=== PATIENT | female | born 1955 | race Caucasian/White ===

== ENCOUNTER 2018-04-04 12:28 | Emergency (ER) | payer OTHER ==
[~2018-04-04] VITALS: Ht 162.6 cm; Wt 83.9 kg
[2018-04-04 12:35] VITALS: BP 165/90
--- NOTE | 2018-04-04 12:40 | NUR ---
PATIENT PRESENTS TO ED WITH THE CHIEF C/O HEADACHE X4 DAYS. TAKING TYLENOL AND IBUPROFEN W/O RELIEF DENIES N/V/D. DENIES BLURRY VISION. SKIN IS PINK/WARM/DRY; AAOX4 WITH EVEN AND STEADY GAIT. PT DENIES ANY FEVER, CP, SOB, OR COUGH AT THIS TIME; PATIENT STATES PAIN OF 8/10 AT THIS TIME. PATIENT POSITIONED FOR COMFORT; HOB ELEVATED; BEDRAILS UP X2; BED DOWN. ER MD MADE AWARE OF PT STATUS.
[2018-04-04] MEDS ORDERED: MORPHINE SULFATE 4 MG/ML SYR IVP ONE (12:50)
[2018-04-04] MEDS ORDERED: PROCHLORPERAZINE 10 MG/2 ML VIAL IVP ONE (12:50)
[2018-04-04] MEDS ORDERED: NACL 0.9% 1,000 ML IV ONE (12:50)
--- NOTE | 2018-04-04 13:26 | NUR ---
PT DECLINING CT SCAN.
[2018-04-04 13:33] LABS: BASOPHILS # (AUTO) 0.1 K/uL (0.00-0.22); EOSINOPHILS # (AUTO) 0.2 K/uL (0-0.4); EOSINOPHILS % (AUTO) 1.8 % (0.0-4.0); HEMATOCRIT 41.7 % (36-48); HEMOGLOBIN 13.2 g/dL (12.0-16.0); LYMPHOCYTES % (AUTO) 28.9 % (20.5-51.1); MEAN CORPUSCULAR HEMOGLOBIN 25 pg (27-31); MEAN CORPUSCULAR HGB CONC 32 g/dL (33-37); MONOCYTES # (AUTO) 0.8 K/uL (0.8-1.0); MONOCYTES % (AUTO) 8.2 % (1.7-9.3); NEUTROPHILS # (AUTO) 6.2 K/uL (1.8-7.7); NEUTROPHILS % (AUTO) 60.1 % (42.2-75.2); PLATELET COUNT (AUTO) 347 K/uL (140-450); RED BLOOD CELL COUNT(AUTO) 5.21 MIL/uL (4.20-5.40); RED CELL DISTRIBUTION WIDTH 14.9 % (11.6-13.7); WHITE BLOOD COUNT (AUTO) 10.4 K/uL (4.8-10.8)
[2018-04-04] MEDS ORDERED: diphenhydrAMINE 50 MG/ML VIAL IVP ONE (13:40)
[2018-04-04 13:48] LABS: CARBON DIOXIDE 26.2 mmol/L (21-32); CREATININE 0.8 mg/dL (0.6-1.3); POTASSIUM 4.2 mmol/L (3.5-5.1)
[2018-04-04 13:53] LABS: ALBUMIN 3.6 g/dL (3.4-5.0); TOTAL BILIRUBIN 0.2 mg/dL (0.0-1.0)
[2018-04-04 13:58] LABS: PROTHROMBIN TIME 9.8 secs (10.8-13.4)
[2018-04-04 14:35] VITALS: BP 153/89
== END 2018-04-04 14:36 | disposition home or self-care (01) ==
LOC: MED 12:28
DX: R51 Headache (principal); H53.149 Visual discomfort, unspecified; R11.0 Nausea; E11.9 Type 2 diabetes mellitus without complications; Z88.0 Allergy status to penicillin
CPT/HCPCS: 36415; 80053; 83880; 84484; 85025; 85610; 85730; 93005; 96374; 96375; 99284; J0780; J1200; J2270; J7030

== ENCOUNTER 2020-10-24 16:54 | Emergency (ER) | payer OTHER ==
[~2020-10-24] VITALS: Ht 165.1 cm; Wt 82.6 kg
[2020-10-24 17:34] VITALS: BP 154/85
[2020-10-24] MEDS ORDERED: KETOROLAC 30 MG/ML VIAL IM ONE (17:35)
[2020-10-24] MEDS ORDERED: CYCLOBENZAPRINE 10 MG TAB PO ONE (17:35)
[2020-10-24] MEDS ORDERED: LID5T TP (18:53)
[2020-10-24] MEDS ORDERED: CYCL-711 PO (18:53)
[2020-10-24] MEDS ORDERED: DICL100G5 TP (18:53)
[2020-10-24] MEDS ORDERED: ACET-8386 PO (18:53)
[2020-10-24] MEDS ORDERED: KETOROLAC 30 MG/ML VIAL ONE (19:58)
[2020-10-24] MEDS ORDERED: CYCLOBENZAPRINE 10 MG TAB ONE (19:58)
[2020-10-24 21:33] VITALS: BP 140/79
--- NOTE | 2020-10-24 21:34 | NUR ---
Patient discharged with v/s stable. Written and verbal after care instructions given and explained. Patient verbalized understanding. Ambulatory with steady gait. All questions addressed prior to discharge. Advised to follow up with PMD.
--- NOTE | 2020-10-24 21:34 | NUR ---
NO NURSING INTERVENTIONS NEEDED
== END 2020-10-24 21:33 | disposition home or self-care (01) ==
LOC: MED 16:54
DX: M54.41 Lumbago with sciatica, right side (principal); W19.XXXA Unspecified fall, initial encounter; Y93.89 Activity, other specified; Y92.89 Other specified places as the place of occurrence of the external cause; Y99.8 Other external cause status
CPT/HCPCS: 72100; 72170; 81002; 99284; J1885

== ENCOUNTER 2021-03-21 11:03 | Observation (INO) | payer OTHER, SELFPAY ==
[~2021-03-21] VITALS: Ht 162.6 cm; Wt 82.6 kg
[~2021-03-21 11:03] MED LIST: ACET-8386 PO; CYCL-711 PO; DICL100G5 TP; LID5T TP
[2021-03-21 11:04] VITALS: BP 114/60
--- NOTE | 2021-03-21 11:20 | NUR ---
pt wheelchair assisted with own chair, heavy assistance needed to bed.
--- NOTE | 2021-03-21 11:25 | NUR ---
joslyn assessing pt in room 08 at this time
--- NOTE | 2021-03-21 11:30 | NUR ---
65 y/o female bib from home, c/o general body weakness (chronic) worsened with carter, nausea and increased thirst for 3 days. pt has own wheelchair at bedside, but unable to ambulate, requires heavy assistance to move. denies vomiting, diarrhea. skin is pink/warm/dry. a&o x4, [place] speaking. lungs clear bl, heart rate even and regular. pt denies dysuria, hematuria, urinary frequency or retention, or anyone sick in the household with the same symptoms. pt denies any fever, cp, sob, or cough at this time. pt states pain is 8/10 at this time. patient positioned for comfort. hob elevated. bed down. ermd made aware of pt. pmh: allergy: penicillin med: tylenol (some relief)
[2021-03-21] MEDS ORDERED: ONDANSETRON 4 MG/2 ML VIAL IVP ONE (11:35)
[2021-03-21] MEDS ORDERED: NACL 0.9% 1,000 ML IV ONE (11:35)
--- NOTE | 2021-03-21 11:40 | NUR ---
pt taken to ct via [facility] at this time
--- NOTE | 2021-03-21 11:51 | NUR ---
pt returned from ct at this time
--- NOTE | 2021-03-21 12:09 | NUR ---
Blood for labwork drawn from [facility]. Patient tolerated.
[2021-03-21 12:17] LABS: BASOPHILS % (AUTO) 0.2 % (0.0-2.0); EOSINOPHILS % (AUTO) 0.1 % (0.0-4.0); HEMATOCRIT 33.8 % (36-48); HEMOGLOBIN 10.9 g/dL (12.0-16.0); LYMPHOCYTES # (AUTO) 0.7 K/uL (2.5-16.5); LYMPHOCYTES % (AUTO) 5.2 % (20.5-51.1); MEAN CORPUSCULAR HEMOGLOBIN 25 pg (27-31); MEAN CORPUSCULAR HGB CONC 32 g/dL (33-37); MEAN CORPUSCULAR VOLUME 76.4 fL (80-94); MONOCYTES # (AUTO) 1.2 K/uL (0.8-1.0); MONOCYTES % (AUTO) 9.7 % (1.7-9.3); NEUTROPHILS % (AUTO) 84.8 % (42.2-75.2); PLATELET COUNT (AUTO) 213 K/uL (140-450); RED BLOOD CELL COUNT(AUTO) 4.43 MIL/uL (4.20-5.40); RED CELL DISTRIBUTION WIDTH 16.2 % (11.6-13.7); WHITE BLOOD COUNT (AUTO) 12.9 K/uL (4.8-10.8)
[2021-03-21 12:37] LABS: ALBUMIN 2.4 g/dL (3.4-5.0); ANION GAP 18.3 (8-16); CARBON DIOXIDE 24.1 mmol/L (21-32); CREATININE 1.1 mg/dL (0.6-1.3); POTASSIUM 4.4 mmol/L (3.5-5.1); TOTAL BILIRUBIN 0.3 mg/dL (0.0-1.0)
--- NOTE | 2021-03-21 13:38 | NUR ---
shane swabbed at this time
--- NOTE | 2021-03-21 13:49 | NUR ---
update was given to at this time.
[2021-03-21] MEDS ORDERED: METF-350 PO (13:59)
[2021-03-21] MEDS ORDERED: GLIP5TAB13 PO (14:01)
[2021-03-21] MEDS ORDERED: [UNRECOGNIZED DRUG - CODE] PO (14:01)
--- NOTE | 2021-03-21 14:11 | NUR ---
pt repositioned at this time, no wounds, pt voided 100ml of dark yellow urine in bed erazo. urine collected and sent to lab at this time
[2021-03-21 15:03] LABS: APPEARANCE,URINE SL CLOUDY (CLEAR); BILIRUBIN,URINE NEGATIVE (NEGATIVE); BLOOD, URINE 1+ (NEGATIVE); COLOR,URINE YELLOW (YELLOW); LEUKOCYTE ESTERASE ,URINE 1+ (NEGATIVE); NITRITE, URINE POSITIVE (NEGATIVE); UGLUCOSE 1+ (NEGATIVE)
[2021-03-21] MEDS ORDERED: DEXTROSE 50% 50 ML SYR IVP PRN (15:10)
[2021-03-21] MEDS ORDERED: INSULIN LISPRO SLIDING SCALE 100 UNITS/ML VIAL SUBQ PRN (15:10)
[2021-03-21] MEDS ORDERED: NACL 0.9% 1,000 ML IV SCH (15:10)
[2021-03-21] MEDS ORDERED: ONDANSETRON 4 MG/2 ML VIAL IVP PRN (15:10)
[2021-03-21] MEDS ORDERED: HYDROcodone/APAP 5/325 MG 1 TAB TAB PO PRN (15:10)
--- NOTE | 2021-03-21 15:22 | NUR ---
pt rippped out iv at this time and is sliding out of bed
--- NOTE | 2021-03-21 15:32 | NUR ---
wanted to start another iv, pt alert and ortiented, states she took it off because she no longer wants to stay here at this time. md gar has been paged.
[2021-03-21 16:06] LABS: RBC,URINE 0-5 /HPF (0-5); WBC,URINE 80-100 /HPF (0-5)
[2021-03-21 16:07] LABS: CALCIUM OXALATE CRYSTALS,UR None Seen /HPF (None Seen); OTHER CRYSTALS,URINE None Seen /HPF (None Seen); TRICHOMONAS,URINE None Seen /HPF (None Seen); TRIPLE PHOSPHATE CRYSTAL,UR None Seen /HPF (None Seen); URIC ACID CRYSTALS,URINE None Seen /HPF (None Seen); YEAST,URINE None Seen /HPF (None Seen)
[2021-03-21 16:08] LABS: HYALINE CASTS, URINE None Seen /LPF (None Seen); URINE AMORPHOUS URATE None Seen /HPF (None Seen)
[2021-03-21 16:14] LABS: FINE GRANULAR CASTS,URINE None Seen /LPF (None Seen)
[2021-03-21 16:15] LABS: COARSE GRANULAR CASTS,URINE 0-10 /LPF (None Seen); OTHER CASTS, URINE None Seen /LPF (None Seen); RED BLOOD CELL CASTS,URINE None Seen /LPF (None Seen); WAXY CASTS,URINE None Seen /LPF (None Seen)
[2021-03-21] MEDS ORDERED: BLOOD GLUCOSE MONITORING 1 DEV DEV FS SCH (16:30)
--- NOTE | 2021-03-21 17:00 | NUR ---
md gar was paged, spoke with pt earlier about ama. made aware and is okay with pt leaving at this time
--- NOTE | 2021-03-21 17:16 | NUR ---
spoke with son and about ama, requested to speak with pt, pt spoke on portable phone with family, pt is still requesting to leave at this time.
[2021-03-21 17:18] VITALS: BP 114/60
--- NOTE | 2021-03-21 17:18 | NUR ---
Patient does not wish to proceed with medical care recommended by rin austin. Patient given information related to possible complications, up to and including , which could occur as a result of leaving hospital at this time. Patient verbalizes understanding of risks involved leaving against medical advice. Patient has signed AMA form.
[2021-03-22] MEDS ORDERED: ENOXAPARIN 40 MG/0.4 ML SYR SUBQ SCH (09:00)
== END 2021-03-21 16:56 | disposition left against medical advice (07) ==
LOC: MED 11:03 → MTU 15:09
PROVIDERS: ADMIT Internal Medicine; ATTEND Internal Medicine
DX: N39.0 Urinary tract infection, site not specified (principal); Z20.822 Contact with and (suspected) exposure to COVID-19; A41.9 Sepsis, unspecified organism; R00.0 Tachycardia, unspecified; D72.829 Elevated white blood cell count, unspecified; E11.65 Type 2 diabetes mellitus with hyperglycemia; I10 Essential (primary) hypertension; F32.9 Major depressive disorder, single episode, unspecified; M54.30 Sciatica, unspecified side; E87.1 Hypo-osmolality and hyponatremia; Z88.0 Allergy status to penicillin; Z98.890 Other specified postprocedural states; Z79.899 Other long term (current) drug therapy
CPT/HCPCS: 36415; 70450; 71045; 80053; 81001; 83880; 84484; 85025; 87040; 87426; 93005; 96361; 96374; 99285; G0378; J1815; J2405; Q0092